=== PATIENT | male | born 1985 | race Caucasian/White ===

== ENCOUNTER 2017-02-16 01:13 | Observation (INO) | payer SELFPAY ==
[2017-02-16 01:24] VITALS: RESP 18
--- NOTE | 2017-02-16 02:07 | ED PDOC ---
HPI: Psych/Substance Abuse Time Seen by Provider: 02/16/17 01:29 Chief Complaint (Nursing): Alcohol Ingestion Chief Complaint (Provider): Alcohol Ingestion ED Caveat: Intoxicated History Per: Other ([facility]) History/Exam Limitations: intoxication Onset/Duration Of Symptoms: Mins (prior to arrival) Current Symptoms Are (Timing): Still Present Additional Complaint(s): Christian Leavitt is a 31 year old male who present to the emergency department via [employer] for an evaluation for alcohol intoxication in public prior to arrival. Unable to obtain history due to patient's current state of intoxication. Denied trauma or drug use. PMD: none provided Past Medical History Reviewed: Nursing Documentation, Vital Signs Vital Signs: Last Vital Signs Temp 98.8 F 02/16/17 01:22 Pulse 122 H 02/16/17 01:22 Resp 18 02/16/17 01:22 BP 144/96 H 02/16/17 01:22 Pulse Ox 97 02/16/17 01:22 - Family History Family History: States: Unknown Family Hx - Allergies Allergies/Adverse Reactions: Allergies Allergy/AdvReac Type Severity Reaction Status Date / Time No Known Allergies Allergy Verified 02/16/17 01:22 Physical Exam - Reviewed Nursing Documentation Reviewed: Yes Vital Signs Reviewed: Yes - Physical Exam Appears: Positive for: Well (but intoxicated), No Acute Distress Head Exam: Positive for: ATRAUMATIC, NORMAL INSPECTION, NORMOCEPHALIC Skin: Positive for: Normal Color Cardiovascular/Chest: Negative for: Chest Non Tender Respiratory: Positive for: Normal Breath Sounds. Negative for: Crackles, Rales , Rhonchi, Wheezing, Respiratory Distress Neurologic/Psych: Positive for: Alert, Other (slurred speech) - ECG O2 Sat by Pulse Oximetry: 97 (RA) Pulse Ox Interpretation: Normal Medical Decision Making Medical Decision Making: Initial Impression: ETOH intoxication Initial Plan: * Alcohol serum * Accucheck * Admit to hospital Time: 0700 --Patient is signed out to Dr. Cristo Sandoval. Pending clinical sobriety. Scribe Attestation: Documented by Patria Hough, acting as a scribe for Feliz Kumar MD. Provider Scribe Attestation: All medical record entries made by the Scribe were at my direction and personally dictated by me. I have reviewed the chart and agree that the record accurately reflects my personal performance of the history, physical exam, medical decision making, and the department course for this patient. I have also personally directed, reviewed, and agree with the discharge instructions and disposition. ED OBSERVATION Date of observation admission: 02/16/17 Time of observation admission: 01:43 - Observation admission statement Patient is being placed in observation because:: ETOH intoxication - Goals of Observation Goals of observation are:: clinical sobriety - Progress Note Progress Note: Time: 0213 --Patient is resting comfortably with stable vital signs. Time: 0343 --Patient continues to rest comfortably with stable vitals. Time: 0513 --Patient is resting comfortably with stable vitals. Time: 0643 --Patient is resting comfortably with stable vitals. Disposition - Clinical Impression Clinical Impression: Alcohol abuse - Patient ED Disposition Is Patient to be Admitted: Transfer of Care - Disposition Disposition: Transfer of Care Disposition Time: 01:43 Condition: STABLE Patient Signed Over To: Cristo Sandoval Handoff Comments: pending sobriety
[2017-02-16 07:21] VITALS: O2SAT 99
[2017-02-16 09:33] VITALS: BP 130/85; PULSE 92
[2017-02-16 09:36] VITALS: TEMP 97.6
--- NOTE | 2017-02-16 09:44 | ED PDOC ---
- ECG O2 Sat by Pulse Oximetry: 99 (RA) Pulse Ox Interpretation: Normal - Progress ED Course And Treament: pt seen and eval by crisis. pt cleared for d/c home pt denies complaints. all of pt's questions were answered an dpt leaves ambulatory and in good spirits. Re-evaluation Time: 09:45 Condition: Improved Medical Decision Making Medical Decision Making: Time: 08:00 --Patient is signed out to me by Dr. Feliz Kumar, pending clinical sobriety. * see ED-OBS for further documentation Scribe Attestation: Documented by Hannah Flynn, acting as a scribe for Cristo Sandoval MD Provider Scribe Attestation: All medical record entries made by the Scribe were at my direction and personally dictated by me. I have reviewed the chart and agree that the record accurately reflects my personal performance of the history, physical exam, medical decision making, and the department course for this patient. I have also personally directed, reviewed, and agree with the discharge instructions and disposition. Disposition Counseled Patient/Family Regarding: Diagnosis, Need For Followup - Clinical Impression Clinical Impression: Alcohol abuse, Anxiety - POA Present On Arrival: None - Disposition Disposition: Routine/Home Disposition Time: :43 Condition: GOOD ED OBSERVATION Date of observation admission: 02/16/17 Time of observation admission: :43 - Observation admission statement Patient is being placed in observation because:: ETOH intoxication - Progress Note Progress Note: 02/16/17 Time: 08:00 --Patient is resting. Pending clinical sobriety and final disposition. Time: 09:30 --Patient is ambulatory with steady gait, denies any complaints. Denies suicidal and homicidal ideations, hallucinations, and depression. No signs of intoxication. --Patient will be discharged home.
== END 2017-02-16 09:41 | disposition home or self-care (01) ==
LOC: H.ER 01:13 → H.EROBSV 01:43
PROVIDERS: ADMIT Emergency Medicine; ATTEND Emergency Medicine
DX: F10.129 Alcohol abuse with intoxication, unspecified (principal); Y90.8 Blood alcohol level of 240 mg/100 ml or more
CPT/HCPCS: 96372; 99285; G0378; G0480; J2060